=== PATIENT | female | born 1980 | race Caucasian/White ===

== ENCOUNTER 2022-07-22 13:40 | Emergency (ER) | payer OTHER ==
[~2022-07-22] VITALS: Ht 165.1 cm; Wt 77.3 kg
[2022-07-22 18:35] LABS: BASO % 0.4 % (0.0-1.0); EOS # 0.2 10^3/uL (0.0-0.5); EOS % 1.4 % (0.0-3.0); HEMATOCRIT 36.7 % (36.0-47.0); LYMPH # 2.6 10^3/uL (1.5-5.0); LYMPH % 23.3 % (24.0-44.0); MEAN CORPUSCULAR HEMOGLOBIN 28.2 pg (27.0-33.0); MEAN CORPUSCULAR HGB CONC 32.7 g/dl (32.0-36.5); MEAN CORPUSCULAR VOLUME 86.2 fl (80.0-96.0); MONO # 0.9 10^3/uL (0.0-0.8); MONO % 8.1 % (2.0-8.0); NEUTROPHILS # 7.5 10^3/uL (1.5-8.5); NEUTROPHILS % 66.4 % (36.0-66.0); PLATELET COUNT, AUTOMATED 347 10^3/uL (150-450); RED BLOOD COUNT 4.26 10^6/uL (4.00-5.40); WHITE BLOOD COUNT 11.2 10^3/uL (4.0-10.0)
[2022-07-22] MEDS ORDERED: GABAPENTIN 300 MG CAP PO ONE (18:45)
[2022-07-22 18:50] LABS: CK-MB VALUE MASS < 1.0 NG/ML (<3.6); CPK CREATINE PHOSPHOKINASE 108 U/L (34-145); HCG, SERUM QUALITATIVE NEGATIVE (NEGATIVE); MB/CK RELATIVE INDEX 0.92 (< OR =4)
[2022-07-22] MEDS ORDERED: NS 1,000 ML IV ONE (18:55)
[2022-07-22] MEDS ORDERED: ISOVUE-370 76% 100ML VIAL As Ordered ONE (19:07)
[2022-07-22 19:52] LABS: INR 0.92; PROTHROMBIN TIME 12.6 SECONDS (12.5-14.5)
[2022-07-22 19:53] LABS: PARTIAL THROMBOPLASTIN TIME 24.3 SECONDS (24.8-34.2)
[2022-07-22 21:00] VITALS: BP 130/69
[2022-07-22] MEDS ORDERED: GABA-282 PO (21:37)
== END 2022-07-22 21:58 | disposition home or self-care (01) ==
LOC: M ED 13:40
DX: R22.33 Localized swelling, mass and lump, upper limb, bilateral (principal); R20.2 Paresthesia of skin; R23.0 Cyanosis; G54.3 Thoracic root disorders, not elsewhere classified; Z79.891 Long term (current) use of opiate analgesic

== ENCOUNTER → 2022-09-05 | Outpatient (CLI) | payer OTHER ==
[~2022-09-05] MED LIST: GABA-282 PO
[2022-09-05 13:55] LABS: HEMOGLOBIN A1c 5.2 % (4.0-6.0)
[2022-09-05 14:05] LABS: THYROID STIMULATING HORMONE 2.618 uIU/ML (0.55-4.78)
[2022-09-05 14:06] LABS: FOLATE > 24.00 NG/ML (>5.4); RHEUMATOID FACTOR QUANT < 3.5 IU/ML (<14); TOTAL 25(OH) VITAMIN D 23.1 NG/ML (20.0-100.0); VITAMIN B12 LEVEL 793 PG/ML (211-911)
[2022-09-11 06:09] LABS: ANTINUCLEAR ANTIBODIES DIRECT Negative (Negative); VITAMIN B1 LEVEL WHOLE BLOOD 140.7 nmol/L (66.5-200.0); VITAMIN E(ALPHA TOCOPHEROL) 16.7 mg/L (7.0-25.1); VITAMIN E(GAMMA TOCOPHEROL) 2.1 mg/L (0.5-5.5)
== END ==
LOC: M PLALAB 11:15
PROVIDERS: ATTEND Psychiatry & Neurology Neurology
DX: G60.9 Hereditary and idiopathic neuropathy, unspecified (principal); E11.9 Type 2 diabetes mellitus without complications

== ENCOUNTER → 2023-08-10 | Outpatient (CLI) | payer BC ==
[2023-08-10 16:17] LABS: ALBUMIN 3.3 G/DL (3.2-5.2); ALKALINE PHOSPHATASE 104 U/L (46-116); ALT/SGPT 12 U/L (7.0-40); AST/SGOT 8 U/L (<34); BILIRUBIN,TOTAL 0.2 MG/DL (0.3-1.2); BLOOD UREA NITROGEN 13 MG/DL (9-23); CALCIUM LEVEL 8.3 MG/DL (8.5-10.1); CARBON DIOXIDE LEVEL 28 MMOL/L (20-31); CHLORIDE LEVEL 107 MMOL/L (98-107); CREATININE FOR GFR 0.62 MG/DL (0.55-1.30); GLOMERULAR FILTRATION RATE > 60.0 (>58); GLUCOSE, FASTING 88 MG/DL (60-100); POTASSIUM SERUM 4.2 MMOL/L (3.5-5.1); SODIUM LEVEL 138 MMOL/L (136-145); TOTAL PROTEIN 6.6 G/DL (5.7-8.2)
[2023-08-10 16:19] LABS: VITAMIN B12 LEVEL 1118 PG/ML (211-911)
[2023-08-10 16:20] LABS: FOLATE 17.4 NG/ML (>5.4); TOTAL 25(OH) VITAMIN D 25.4 NG/ML (20.0-100.0)
[2023-08-10 16:21] LABS: BASO % 0.3 % (0.0-1.0); EOS # 0.2 10^3/uL (0.0-0.5); EOS % 2.2 % (0.0-3.0); HEMATOCRIT 37.9 % (36.0-47.0); HEMOGLOBIN 12.2 g/dl (12.0-15.5); LYMPH # 2.5 10^3/uL (1.5-5.0); LYMPH % 29.1 % (24.0-44.0); MEAN CORPUSCULAR HGB CONC 32.2 g/dl (32.0-36.5); MONO # 0.6 10^3/uL (0.0-0.8); MONO % 6.6 % (2.0-8.0); NEUTROPHILS # 5.4 10^3/uL (1.5-8.5); NEUTROPHILS % 61.6 % (36.0-66.0); PLATELET COUNT, AUTOMATED 305 10^3/uL (150-450); RED BLOOD COUNT 4.21 10^6/uL (4.00-5.40); WHITE BLOOD COUNT 8.7 10^3/uL (4.0-10.0)
== END ==
LOC: M PLALAB 13:03
PROVIDERS: ATTEND Psychiatry & Neurology Neurology
DX: R52 Pain, unspecified (principal)

== ENCOUNTER → 2024-06-11 | Outpatient (CLI) | payer OTHER ==
[~2024-06-11] MED LIST changes: +GABA-1172 PO; -GABA-282 PO
== END ==
LOC: M LAB 09:49
PROVIDERS: ATTEND Student in an Organized Health Care Education/Training Program
DX: E03.9 Hypothyroidism, unspecified (principal)

== ENCOUNTER → 2024-10-04 | Outpatient (CLI) | payer OTHER ==
[2024-10-06 13:12] LABS: QuantiFERON-TB Gold Plus POSITIVE (NEGATIVE)
== END ==
LOC: M PLALAB 12:01
PROVIDERS: ATTEND Internal Medicine Rheumatology
DX: Z79.899 Other long term (current) drug therapy (principal)